=== PATIENT | female | born 1955 | race Hispanic/Latino ===

== ENCOUNTER 2021-12-11 10:04 | Emergency (ER) | payer OTHER ==
[~2021-12-11] VITALS: Ht 152.4 cm; Wt 64.5 kg
[2021-12-11 10:27] LABS: BASOPHILS % (AUTO) 0.3 % (0.0-5.0); HEMATOCRIT 38.2 % (36-48); LYMPHOCYTES % (AUTO) 38.3 % (21.0-51.0); MEAN CORPUSCULAR HGB CONC 32.7 g/dL (32.0-36.0); MEAN CORPUSCULAR VOLUME 91.6 fL (79-99); MONOCYTES % (AUTO) 7.7 % (3.0-13.0); NEUTROPHILS % (AUTO) 50.3 % (40.0-77.0); PLATELET COUNT (AUTO) 368 K/uL (130-400); RED BLOOD CELL COUNT(AUTO) 4.17 MIL/uL (4.00-5.50); RED CELL DISTRIBUTION WIDTH 13.2 % (11.0-15.5); WHITE BLOOD COUNT (AUTO) 7.4 K/uL (4.8-10.8)
[2021-12-11 10:39] LABS: APPEARANCE,URINE CLEAR (CLEAR); BILIRUBIN,URINE NEGATIVE (NEGATIVE); COLOR,URINE YELLOW (YELLOW); GLUCOSE, URINE (UA) NEGATIVE (NEGATIVE); KETONES,URINE NEGATIVE (NEGATIVE); LEUKOCYTE ESTERASE ,URINE NEGATIVE (NEGATIVE); NITRATE,URINE NEGATIVE (NEGATIVE); OCCULT BLOOD,URINE TRACE-LYSED (NEGATIVE); PROTEIN,URINE NEGATIVE (NEGATIVE)
[2021-12-11 10:46] LABS: CREATININE 0.7 mg/dL (0.5-1.5); POTASSIUM 4.1 mmol/L (3.5-5.1)
[2021-12-11 10:52] LABS: ALBUMIN 3.6 g/dL (3.5-5.0); TOTAL PROTEIN, SERUM 7.2 g/dL (6.0-8.3)
[2021-12-11 11:13] VITALS: BP 175/69
[2021-12-11 11:14] LABS: BACTERIA,URINE Few /HPF (None Seen); RBC,URINE 0-1 /HPF (0-1)
[2021-12-11 11:15] LABS: WBC,URINE 0-1 /HPF (0-1)
== END 2021-12-11 13:08 | disposition home or self-care (01) ==
LOC: EDH 10:04
DX: R10.11 Right upper quadrant pain (principal); E11.9 Type 2 diabetes mellitus without complications; E78.00 Pure hypercholesterolemia, unspecified; I10 Essential (primary) hypertension
CPT/HCPCS: 36415; 71045; 80053; 81001; 83690; 84484; 85025; 93005

== ENCOUNTER 2022-07-11 10:40 | Emergency (ER) | payer BC, MEDICAID, OTHER ==
[~2022-07-11] VITALS: Ht 61 cm; Wt 61.2 kg
[2022-07-11 10:43] VITALS: BP 195/96
== END 2022-07-11 11:48 | disposition left against medical advice (07) ==
LOC: EDH 10:40
DX: N64.4 Mastodynia (principal); I10 Essential (primary) hypertension; E11.9 Type 2 diabetes mellitus without complications; E78.00 Pure hypercholesterolemia, unspecified; Z90.49 Acquired absence of other specified parts of digestive tract
CPT/HCPCS: 99281

== ENCOUNTER 2023-02-02 03:53 | Emergency (ER) | payer BC ==
[~2023-02-02] VITALS: Ht 149.9 cm; Wt 64.0 kg
[2023-02-02 04:19] LABS: BASOPHILS # (AUTO) 0.05 K/uL (0.00-0.20); BASOPHILS % (AUTO) 0.4 % (0.0-5.0); EOSINOPHILS # (AUTO) 0.24 K/uL (0.00-0.70); EOSINOPHILS % (AUTO) 2.1 % (0.0-8.0); HEMATOCRIT 37.8 % (36-48); IMMATURE GRANULOCYTE ABSOLUTE 0.03 K/uL (0-1); LYMPHOCYTES # (AUTO) 3.3 K/uL (1.0-4.8); LYMPHOCYTES % (AUTO) 29.2 % (21.0-51.0); MEAN CORPUSCULAR HGB CONC 32.8 g/dL (32.0-36.0); MEAN CORPUSCULAR VOLUME 91.5 fL (79-99); MONOCYTES # (AUTO) 0.8 K/uL (0.1-1.0); MONOCYTES % (AUTO) 7.4 % (3.0-13.0); NEUTROPHILS # (AUTO) 6.9 K/uL (1.8-7.7); NEUTROPHILS % (AUTO) 60.6 % (40.0-77.0); PLATELET COUNT (AUTO) 373 K/uL (130-400); RED BLOOD CELL COUNT(AUTO) 4.13 MIL/uL (4.00-5.50); RED CELL DISTRIBUTION WIDTH 12.9 % (11.0-15.5); WHITE BLOOD COUNT (AUTO) 11.4 K/uL (4.8-10.8)
[2023-02-02] MEDS ORDERED: ONDANSETRON 4MG INJ IVP ONE (04:30)
[2023-02-02] MEDS ORDERED: MORPHINE 4 MG SYG IVP ONE (04:30)
[2023-02-02 04:32] LABS: CREATININE 0.6 mg/dL (0.5-1.5); POTASSIUM 3.2 mmol/L (3.5-5.1)
[2023-02-02 04:36] LABS: ALBUMIN 3.9 g/dL (3.5-5.0); BILIRUBIN,TOTAL 0.4 mg/dL (0.2-1.0); TOTAL PROTEIN, SERUM 7.5 g/dL (6.0-8.3)
[2023-02-02] MEDS ORDERED: 0.9% NACL 500ML IV.SOLN 500 ML IV ONE (05:00)
[2023-02-02] MEDS ORDERED: KETOROLAC 30MG VIAL (30MG/ML) IVP ONE (06:00)
[2023-02-02 06:22] LABS: APPEARANCE,URINE CLEAR (CLEAR); BILIRUBIN,URINE NEGATIVE (NEGATIVE); COLOR,URINE COLORLESS (YELLOW); GLUCOSE, URINE (UA) NEGATIVE (NEGATIVE); KETONES,URINE NEGATIVE (NEGATIVE); LEUKOCYTE ESTERASE ,URINE NEGATIVE Leu/uL (NEGATIVE); NITRATE,URINE NEGATIVE (NEGATIVE); OCCULT BLOOD,URINE NEGATIVE (NEGATIVE); PROTEIN,URINE NEGATIVE (NEGATIVE); UROBILINOGEN,URINE 0.2 mg/dL (0.2-1.0)
[2023-02-02 06:23] LABS: ADD UA MICROSCOPIC NO
[2023-02-02 08:19] VITALS: BP 145/78; PULSE 78; RESP 18; O2SAT 98
== END 2023-02-02 08:26 | disposition home or self-care (01) ==
LOC: EDH 03:53
DX: K40.20 Bilateral inguinal hernia, without obstruction or gangrene, not specified as recurrent (principal); E86.0 Dehydration; E87.6 Hypokalemia; I87.8 Other specified disorders of veins; I10 Essential (primary) hypertension; E11.9 Type 2 diabetes mellitus without complications; Z90.710 Acquired absence of both cervix and uterus
CPT/HCPCS: 99285; 74176; 96374; 76705; 71045; 96375; 84484; 80053; 83690; 85025; 81003; 36415; 93005; J7040; J2405; J2270; J1885